=== PATIENT | male | born 1980 | race Caucasian/White ===

== ENCOUNTER 2017-12-31 11:29 | Emergency (ER) | payer OTHER ==
[2017-12-31 11:42] VITALS: BP 127/76
--- NOTE | 2017-12-31 11:55 | EDPHY ---
H & P Time Seen by Provider: 12/31/17 11:50 HPI/ROS: HPI Thumb laceration. 37-year-old male. Right-hand dominant. 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 He accidentally lacerated the radial aspect of his left distal thumb on a knife while wiping it with addition rag. This occurred 2 days ago. He reports that he has had a tetanus shot within the last 5 years. She denies any other injury or complaint. He complains of localized pain to this area. ROS: Constitutional: No fever, no chills. No weakness. Musculoskeletal: No back pain. No neck pain. As above. No other extremity pain. Skin: As above. Neurological: No focal weakness or altered sensation. Past medical history: Denies. Social history: Nonsmoker. No alcohol. Here by himself. Physical Exam: General Appearance: Alert, no distress. This patient is responding to questions appropriately and in full sentences. This patient appears well- hydrated and well-nourished. Eyes: Pupils equal and round no pallor or injection. No lid edema, erythema or injection. Left thumb examination, significant for a avulsion type injury measuring approximately 1 cm in diameter to the distal radial aspect of the left thumb. Not involving the nail. It is radial to the finger pad. No active hemorrhage. There is no evidence of infection. No significant edema, swelling or purulence noted. The left thumb is otherwise neurovascularly intact. Neurological: Motor sensory function is grossly intact. Cranial nerves are normal. Gait is normal. Skin: Warm and dry, no rashes. As above. Extremities are symmetrical. All joints range without pain or impingement. Psychiatric: No agitation. No depression. Database: EKG: Imaging: Procedures: Emergency department course: Triage vital signs reviewed and are normal. This injury is nonsuturable. The wound area was cleansed thoroughly. No evidence of foreign body or infectious process. A small piece of Surgicel was placed over the avulsed tissue followed by a fine gauze dressing. The patient will follow up with his primary care physician in 2-3 days for wound check. He feels comfortable going home. I feel he is safe for discharge. Follow-up and return to emergency department precautions reviewed thoroughly with him. All of his questions were answered. He was discharged from the emergency department in good condition. Differential Diagnosis: The differential diagnosis on this patient includes but is not limited to left thumb avulsion injury. Suturable laceration, retained foreign body, significant neurovascular injury unlikely. This represents a partial list of diagnoses considered. These considerations are based on history, physical exam , past history, reassessment and diagnostic testing. Smoking Status: Never smoked Constitutional: Initial Vital Signs Temperature (C) 37 C 12/31/17 11:35 Heart Rate 84 12/31/17 11:35 Respiratory Rate 14 12/31/17 11:35 Blood Pressure 127/76 H 12/31/17 11:35 O2 Sat (%) 97 12/31/17 11:35 O2 Delivery Mode Room Air Allergies/Adverse Reactions: No Known Allergies Allergy (Unverified 12/31/17 11:35) Home Medications: Medication Instructions Recorded NK [No Known Home Meds] 12/31/17 Departure - Departure Disposition: Home, Routine, Self-Care Clinical Impression: Avulsion of skin of left thumb Condition: Good Instructions: Skin Avulsion (ED) Additional Instructions: Read and follow provided instructions. Follow-up with your primary care physician or workman's Comp physician on Tuesday or Tuesday of this week for wound check. Ibuprofen dosin mg every 6 hours with meals for the next 3 days only. Take only as needed for pain. Return to the emergency department for worsening pain, discoloration, swelling or other serious concerns. Referrals: NONE *PRIMARY CARE P,. [Primary Care Provider] - As per Instructions
== END 2017-12-31 12:19 | disposition home or self-care (01) ==
LOC: CED 11:29
DX: S61.012A Laceration without foreign body of left thumb without damage to nail, initial encounter (principal); W26.0XXA Contact with knife, initial encounter; Y93.G1 Activity, food preparation and clean up; Y99.0 Civilian activity done for income or pay; Y92.248 Other public administrative building as the place of occurrence of the external cause